=== PATIENT | male | born 1970 | race Caucasian/White ===

== ENCOUNTER 2018-12-11 23:01 | Inpatient (IN) | payer OTHER, MEDICARE ==
[~2018-12-11] VITALS: Ht 198.1 cm; Wt 107.5 kg
[2018-12-12] VITALS (7 sets, daily range): BP systolic 124–148; BP diastolic 52–83
[2018-12-12] MEDS ORDERED: SODIUM CHLORIDE 0.9% 1,000 ML IV ONE (01:50)
[2018-12-12] MEDS ORDERED: MORPHINE SULFATE 4 MG/ML CPJ (NOT FOR IM USE) IV STA (01:50)
[2018-12-12] MEDS ORDERED: ONDANSETRON HCL 4MG/2ML INJ IV STA (01:50)
[2018-12-12] MEDS ORDERED: CLINDAMYCIN 600 MG in DEXTROSE 5% WATER 50 ML IV ONE (02:00)
[2018-12-12] MEDS ORDERED: PIPERACILLIN/TAZ 3.375G PREMIX 50 ML IV ONE (02:00)
[2018-12-12] MEDS ORDERED: VANCOMYCIN 1 G PREMIX 200 ML IV ONE (02:00)
[2018-12-12 02:04] LABS: CHLORIDE 92 mEq/L (98-107)
[2018-12-12 02:12] LABS: BETA HYDROXYBUTYRATE 0.4 mMol/L (0.0-0.3)
[2018-12-12 02:30] LABS: BASOPHILS % 0.2 % (0.0-2.0); EOSINOPHILS % 0.1 % (0.0-5.0); HEMATOCRIT. 40.2 % (42.0-52.0); HEMOGLOBIN. 13.9 g/dL (14.0-18.0); MEAN CORPUSCULAR HEMOGLOBIN 33.5 pg (28.0-32.0); MEAN CORPUSCULAR VOLUME 96.8 fL (80.0-94.0); MEAN PLATELET VOLUME 7.5 fl (7.4-10.4); MONOCYTES % 8.6 % (2.0-8.0); NEUTROPHILS % 80.1 % (40.0-76.0); PLATELET 289 x1000/uL (130-400); RED BLOOD CELL COUNT 4.15 mill/uL (4.7-6.1); RED CELL DISTRIBUTION WIDTH 13.4 % (11.6-14.6)
[2018-12-12] MEDS ORDERED: CLINDAMYCIN 600MG PREMIX 50 ML IV SCH (02:30)
[2018-12-12 02:39] LABS: PROTHROMBIN TIME 10.7 sec (9.6-11.0)
[2018-12-12] MEDS ORDERED: DEXTROSE 50% WATER 50ML SYRINGE IV PRN ×2 (07:00→10:15)
[2018-12-12] MEDS ORDERED: INSULIN LISPRO (MEDIUM DOSE) 100 UNITS/ML SUBCUT SCH (08:20)
[2018-12-12] MEDS ORDERED: BLOOD SUGAR DIAGNOSTIC STRIP TEST SCH (09:00)
[2018-12-12] MEDS ORDERED: INSULIN GLARGINE UD 100 UNITS/ML SYR SUBCUT ONE (10:45)
[2018-12-12] MEDS ORDERED: GABA600T PO (11:03)
[2018-12-12] MEDS ORDERED: PIOG1TAB7 PO (11:03)
[2018-12-12] MEDS ORDERED: CEPH-569 PO (11:03)
[2018-12-12] MEDS ORDERED: INSU3INS2 SQ (11:03)
[2018-12-12] MEDS ORDERED: HYDR-4009 PO (11:03)
[2018-12-12] MEDS ORDERED: INSLIS SUBCUT (11:03)
[2018-12-12] MEDS ORDERED: DIXL10 PO (11:03)
[2018-12-12] MEDS ORDERED: SULF-288 PO (11:03)
[2018-12-12] MEDS ORDERED: ATOR20TA PO (11:03)
[2018-12-12] MEDS: SODIUM CHLORIDE 0.9% 1,000 ML IV SCH (12:12)
[2018-12-12] MEDS ORDERED: IOHEXOL-300 100 ML BOTTLE ONE (12:33)
[2018-12-12] MEDS: BLOOD SUGAR DIAGNOSTIC STRIP TEST SCH ×3 (12:54→21:00)
[2018-12-12] MEDS: PIPERACILLIN/TAZ 3.375G PREMIX 50 ML IV SCH ×2 (12:54→18:28)
[2018-12-12] MEDS ORDERED: VANCOMYCIN 2,000 MG in DEXT 5% WATER 500 ML IV SCH (13:00)
[2018-12-12 13:20] LABS: CLARITY URINE CLEAR (CLEAR); COLOR URINE YELLOW (YELLOW); KETONES URINE NEGATIVE (NEGATIVE); LEUKOCYTE ESTERASE URINE NEGATIVE (NEGATIVE); NITRITE URINE NEGATIVE (NEGATIVE); OCCULT BLOOD URINE NEGATIVE (NEGATIVE); PROTEIN URINE NEGATIVE (NEGATIVE); SPECIFIC GRAVITY URINE 1.016 (1.005-1.030); UROBILINOGEN URINE 0.2 E.U./dL (0.2-1.0)
[2018-12-12] MEDS: INSULIN LISPRO 100 UNITS/ML SUBCUT SCH ×3 (13:22→21:38)
[2018-12-12] MEDS ORDERED: TETANUS, DIPHTHERIA, PERTUSSIS VAC/PF 0.5ML (>7YR OLD) IM ONE (14:15)
[2018-12-12] MEDS ORDERED: INSULIN GLARGINE UD 100 UNITS/ML SYR SUBCUT NR (14:30)
[2018-12-12] MEDS ORDERED: ENOXAPARIN 40MG/0.4ML SYR SUBCUT SCH (15:00)
[2018-12-12 15:05] LABS: *AMPHETAMINES SCREEN URINE NEGATIVE (NEGATIVE); *BARBITURATES SCREEN URINE NEGATIVE (NEGATIVE); *BENZODIAZEPINES SCREEN URINE NEGATIVE (NEGATIVE); METHADONE URINE SCREEN NEGATIVE (NEGATIVE); OPIATES URINE SCREEN PRESUMTIVE POSITIVE (NEGATIVE)
[2018-12-12 15:06] LABS: CANNABINOID URINE SCREEN PRESUMTIVE POSITIVE (NEGATIVE); PHENCYCLIDINE URINE SCREEN NEGATIVE (NEGATIVE)
[2018-12-12 15:08] LABS: *COCAINE SCREEN URINE PRESUMTIVE POSITIVE (NEGATIVE)
[2018-12-12] MEDS: NICOTINE 21MG PATCH TD SCH (16:52)
[2018-12-12] MEDS: CLINDAMYCIN 600MG PREMIX 50 ML IV SCH (16:53)
[2018-12-12] MEDS: VANCOMYCIN 1500MG in DEXTROSE 5% WATER 250ML IV SCH (21:26)
[2018-12-13] VITALS (12 sets, daily range): BP systolic 123–170; BP diastolic 57–90
[2018-12-13] MEDS: CLINDAMYCIN 600MG PREMIX 50 ML IV SCH ×4 (00:01→23:23)
[2018-12-13] MEDS: PIPERACILLIN/TAZ 3.375G PREMIX 50 ML IV SCH ×5 (00:02→23:23)
[2018-12-13] MEDS: SODIUM CHLORIDE 0.9% 1,000 ML IV SCH ×2 (02:54→13:09)
[2018-12-13] MEDS: VANCOMYCIN 1500MG in DEXTROSE 5% WATER 250ML IV SCH ×3 (04:59→20:52)
[2018-12-13] MEDS ORDERED: FENTANYL CITRATE/PF 50MCG/ML 2ML VIAL ONE ×2 (06:38→07:12)
[2018-12-13] MEDS ORDERED: NEOSTIGMINE METHYLSULFATE 1MG/ML 10 ML VIAL ONE (06:39)
[2018-12-13] MEDS ORDERED: MIDAZOLAM HCL 2 MG/2 ML VIAL ONE ×4 (06:39→08:03)
[2018-12-13] MEDS ORDERED: LIDOCAINE HCL/PF 1% 10 MG/ML 5ML VIAL ONE (06:40)
[2018-12-13] MEDS ORDERED: PROPOFOL 200MG/20ML VIAL IV ONE (06:40)
[2018-12-13] MEDS ORDERED: GENTAMICIN SULF 40MG/ML 2ML VIAL ONE (06:46)
[2018-12-13] MEDS ORDERED: BACITRACIN 15GM TUBE TOP ONE (06:47)
[2018-12-13] MEDS ORDERED: LIDOCAINE HCL 1% 20ML VIAL (Pyxis) INJ ONE (06:47)
[2018-12-13] MEDS ORDERED: BUPIVACAINE HCL/PF 0.5% (5MG/ML) 10ML ONE (06:47)
[2018-12-13] MEDS ORDERED: BACITRACIN 50,000 UNITS/VIAL ONE (06:47)
[2018-12-13] MEDS ORDERED: LIDOCAINE HCL/EPINEPHRINE 1%-EPI 1:100,000 20 ML VIAL ONE (06:48)
[2018-12-13 06:58] LABS: HEMATOCRIT 38.6 % (42.0-52.0); HEMOGLOBIN 13.2 g/dL (14.0-18.0); MEAN CORPUSCULAR HEMOGLOBIN 33.3 pg (28.0-32.0); MEAN CORPUSCULAR VOLUME 97.1 fL (80.0-94.0); PLATELET 293 x1000/uL (130-400); RED BLOOD CELL COUNT 3.97 mill/uL (4.7-6.1); RED CELL DISTRIBUTION WIDTH 13.4 % (11.6-14.6)
[2018-12-13 07:06] LABS: CHLORIDE 100 mEq/L (98-107)
[2018-12-13] MEDS ORDERED: ROPIVACAINE HCL 10MG/ML 20 ML VIAL EPI ONE (07:08)
[2018-12-13 07:14] LABS: LDL CHOLESTEROL 88 mg/dL (5-100)
[2018-12-13 07:16] LABS: HDL CHOLESTEROL 31 mg/dL (40-59); T4 FREE 1.44 ng/dL (0.76-1.46)
[2018-12-13] MEDS ORDERED: DIPHENHYDRAMINE 50MG/ML VIAL ONE (07:25)
[2018-12-13] MEDS: BLOOD SUGAR DIAGNOSTIC STRIP TEST SCH ×4 (07:30→20:59)
[2018-12-13] MEDS ORDERED: HYDROMORPHONE HCL/PF 2MG/ML CPJ IV PRN (09:00)
[2018-12-13] MEDS ORDERED: INSULIN GLARGINE UD 100 UNITS/ML SYR SUBCUT SCH (10:00)
[2018-12-13] MEDS: NICOTINE 21MG PATCH TD SCH (10:47)
[2018-12-13] MEDS: INSULIN LISPRO 100 UNITS/ML SUBCUT SCH ×4 (10:51→21:10)
[2018-12-13] MEDS: MORPHINE SULFATE 2 MG/ML CPJ (NOT FOR IM USE) IV PRN ×2 (16:40→21:09)
[2018-12-13] MEDS ORDERED: HYDRALAZINE 20MG/ML VIAL IV PRN (17:30)
[2018-12-13] MEDS: AMLODIPINE 5MG TABLET PO SCH (18:24)
[2018-12-13] MEDS ORDERED: INSULIN GLARGINE UD 100 UNITS/ML SYR SUBCUT NR (18:30)
[2018-12-14] VITALS (12 sets, daily range): BP systolic 122–158; BP diastolic 56–91
[2018-12-14] MEDS: MORPHINE SULFATE 2 MG/ML CPJ (NOT FOR IM USE) IV PRN ×5 (01:49→22:44)
[2018-12-14] MEDS: VANCOMYCIN 1500MG in DEXTROSE 5% WATER 250ML IV SCH ×3 (04:08→21:02)
[2018-12-14] MEDS: SODIUM CHLORIDE 0.9% 1,000 ML IV SCH ×2 (04:10→15:39)
[2018-12-14] MEDS: PIPERACILLIN/TAZ 3.375G PREMIX 50 ML IV SCH ×3 (06:14→18:58)
[2018-12-14 06:42] LABS: BASOPHILS % 0.3 % (0.0-2.0); EOSINOPHILS % 0.1 % (0.0-5.0); HEMATOCRIT. 38.7 % (42.0-52.0); LYMPHOCYTES % 13.3 % (20.0-50.0); MEAN CORPUSCULAR HEMOGLOBIN 32.6 pg (28.0-32.0); MEAN CORPUSCULAR VOLUME 96.9 fL (80.0-94.0); MEAN PLATELET VOLUME 7.4 fl (7.4-10.4); MONOCYTES % 8.8 % (2.0-8.0); NEUTROPHILS % 77.5 % (40.0-76.0); PLATELET 278 x1000/uL (130-400); RED BLOOD CELL COUNT 3.99 mill/uL (4.7-6.1); RED CELL DISTRIBUTION WIDTH 13.8 % (11.6-14.6)
[2018-12-14 07:00] LABS: CHLORIDE 101 mEq/L (98-107)
[2018-12-14] MEDS: BLOOD SUGAR DIAGNOSTIC STRIP TEST SCH ×4 (07:30→20:55)
[2018-12-14] MEDS: CLINDAMYCIN 600MG PREMIX 50 ML IV SCH ×3 (08:46→23:42)
[2018-12-14] MEDS: INSULIN LISPRO 100 UNITS/ML SUBCUT SCH ×4 (08:46→21:01)
[2018-12-14] MEDS: NICOTINE 21MG PATCH TD SCH (08:46)
[2018-12-14] MEDS: AMLODIPINE 5MG TABLET PO SCH (08:48)
[2018-12-14] MEDS ORDERED: LIDOCAINE HCL 1% 20ML VIAL (Pyxis) INJ ONE (10:14)
[2018-12-14] MEDS ORDERED: IOHEXOL-350 100 ML BOTTLE ONE (11:02)
[2018-12-14] MEDS: INSULIN GLARGINE UD 100 UNITS/ML SYR SUBCUT SCH (11:51)
[2018-12-14] MEDS ORDERED: ENOXAPARIN 40MG/0.4ML SYR SUBCUT SCH (19:15)
[2018-12-14] MEDS: ENOXAPARIN 40MG/0.4ML SYR SUBCUT SCH (20:55)
[2018-12-15] VITALS (11 sets, daily range): BP systolic 132–164; BP diastolic 41–89
[2018-12-15] MEDS: PIPERACILLIN/TAZ 3.375G PREMIX 50 ML IV SCH ×3 (00:52→11:22)
[2018-12-15] MEDS: SODIUM CHLORIDE 0.9% 1,000 ML IV SCH ×2 (05:20→18:22)
[2018-12-15] MEDS: VANCOMYCIN 1500MG in DEXTROSE 5% WATER 250ML IV SCH ×2 (05:58→13:29)
[2018-12-15 06:38] LABS: CHLORIDE 102 mEq/L (98-107)
[2018-12-15 06:54] LABS: HEMATOCRIT. 39.5 % (42.0-52.0); HEMOGLOBIN. 13.4 g/dL (14.0-18.0); MEAN CORPUSCULAR VOLUME 97.1 fL (80.0-94.0); MEAN PLATELET VOLUME 7.3 fl (7.4-10.4); PLATELET 306 x1000/uL (130-400); RED BLOOD CELL COUNT 4.07 mill/uL (4.7-6.1); RED CELL DISTRIBUTION WIDTH 13.6 % (11.6-14.6)
[2018-12-15] MEDS: NICOTINE 21MG PATCH TD SCH (08:22)
[2018-12-15] MEDS: AMLODIPINE 5MG TABLET PO SCH (08:23)
[2018-12-15] MEDS: CLINDAMYCIN 600MG PREMIX 50 ML IV SCH ×2 (08:24→16:09)
[2018-12-15] MEDS: INSULIN LISPRO 100 UNITS/ML SUBCUT SCH ×4 (08:28→21:07)
[2018-12-15] MEDS: BLOOD SUGAR DIAGNOSTIC STRIP TEST SCH ×4 (08:29→21:20)
[2018-12-15] MEDS: INSULIN GLARGINE UD 100 UNITS/ML SYR SUBCUT SCH (10:19)
[2018-12-15 12:15] LABS: PLATELET ESTIMATE NORMAL
[2018-12-15] MEDS: MORPHINE SULFATE 2 MG/ML CPJ (NOT FOR IM USE) IV PRN ×2 (17:30→22:19)
[2018-12-15] MEDS ORDERED: AMPICILLIN SOD/SULBACTAM NA 3 G in SODIUM CHLORIDE 0.9% 100 ML IV SCH (18:00)
[2018-12-15] MEDS: AMPICILLIN/SULBACTAM 3G in SODIUM CHLORIDE 0.9% 100ML IV SCH (20:31)
[2018-12-15] MEDS: ENOXAPARIN 40MG/0.4ML SYR SUBCUT SCH (20:33)
[2018-12-16] VITALS: BP 136/73
[2018-12-16] MEDS: AMPICILLIN/SULBACTAM 3G in SODIUM CHLORIDE 0.9% 100ML IV SCH ×4 (00:22→19:08)
[2018-12-16 02:00] VITALS: BP 126/68
[2018-12-16 06:57] LABS: HEMATOCRIT 39.2 % (42.0-52.0); HEMOGLOBIN 13.4 g/dL (14.0-18.0); MEAN CORPUSCULAR HEMOGLOBIN 33.3 pg (28.0-32.0); MEAN CORPUSCULAR VOLUME 97.2 fL (80.0-94.0); PLATELET 326 x1000/uL (130-400); RED BLOOD CELL COUNT 4.03 mill/uL (4.7-6.1); RED CELL DISTRIBUTION WIDTH 13.8 % (11.6-14.6)
[2018-12-16 07:25] LABS: CHLORIDE 103 mEq/L (98-107)
[2018-12-16 08:00] VITALS: BP 130/70
[2018-12-16] MEDS: BLOOD SUGAR DIAGNOSTIC STRIP TEST SCH ×4 (08:00→21:19)
[2018-12-16] MEDS: SODIUM CHLORIDE 0.9% 1,000 ML IV SCH (09:30)
[2018-12-16] MEDS: AMLODIPINE 5MG TABLET PO SCH (09:31)
[2018-12-16] MEDS: NICOTINE 21MG PATCH TD SCH (09:31)
[2018-12-16] MEDS: INSULIN LISPRO 100 UNITS/ML SUBCUT SCH ×4 (09:37→21:19)
[2018-12-16] MEDS: INSULIN GLARGINE UD 100 UNITS/ML SYR SUBCUT SCH (09:38)
[2018-12-16 12:00] VITALS: BP 136/65
[2018-12-16] MEDS: ENOXAPARIN 40MG/0.4ML SYR SUBCUT SCH (21:16)
[2018-12-16] MEDS: MORPHINE SULFATE 2 MG/ML CPJ (NOT FOR IM USE) IV PRN (21:17)
[2018-12-17] MEDS: AMPICILLIN/SULBACTAM 3G in SODIUM CHLORIDE 0.9% 100ML IV SCH ×4 (01:41→18:19)
[2018-12-17] MEDS: SODIUM CHLORIDE 0.9% 1,000 ML IV SCH ×2 (03:34→18:26)
[2018-12-17 06:35] LABS: HEMATOCRIT 42.7 % (42.0-52.0); HEMOGLOBIN 14.7 g/dL (14.0-18.0); MEAN CORPUSCULAR HEMOGLOBIN 33.3 pg (28.0-32.0); MEAN CORPUSCULAR VOLUME 96.5 fL (80.0-94.0); PLATELET 392 x1000/uL (130-400); RED BLOOD CELL COUNT 4.42 mill/uL (4.7-6.1); RED CELL DISTRIBUTION WIDTH 13.8 % (11.6-14.6)
[2018-12-17 06:51] LABS: CHLORIDE 103 mEq/L (98-107)
[2018-12-17] MEDS: BLOOD SUGAR DIAGNOSTIC STRIP TEST SCH ×4 (07:30→21:27)
[2018-12-17] MEDS: NICOTINE 21MG PATCH TD SCH (09:04)
[2018-12-17] MEDS: INSULIN GLARGINE UD 100 UNITS/ML SYR SUBCUT SCH (09:05)
[2018-12-17] MEDS: INSULIN LISPRO 100 UNITS/ML SUBCUT SCH ×4 (09:06→21:28)
[2018-12-17] MEDS: AMLODIPINE 5MG TABLET PO SCH (10:22)
[2018-12-17] MEDS ORDERED: POTASSIUM CHLORIDE 20MEQ TABLET SR PO SCH (11:00)
[2018-12-17] MEDS ORDERED: MORPHINE SULFATE 2 MG/ML CPJ (NOT FOR IM USE) IV NR (17:25)
[2018-12-17] MEDS ORDERED: HYDROCODONE/ACETAMINOPHEN 5/325MG TABLET PO PRN (20:45)
[2018-12-17] MEDS: ENOXAPARIN 40MG/0.4ML SYR SUBCUT SCH (21:30)
[2018-12-18] MEDS: AMPICILLIN/SULBACTAM 3G in SODIUM CHLORIDE 0.9% 100ML IV SCH ×4 (00:18→18:11)
[2018-12-18] MEDS: SODIUM CHLORIDE 0.9% 1,000 ML IV SCH ×2 (00:19→13:19)
[2018-12-18] MEDS: BLOOD SUGAR DIAGNOSTIC STRIP TEST SCH ×3 (07:30→18:12)
[2018-12-18 08:00] VITALS: BP 149/74
[2018-12-18] MEDS: NICOTINE 21MG PATCH TD SCH (08:56)
[2018-12-18] MEDS: AMLODIPINE 5MG TABLET PO SCH (08:56)
[2018-12-18] MEDS: INSULIN LISPRO 100 UNITS/ML SUBCUT SCH ×3 (08:59→18:11)
[2018-12-18] MEDS: INSULIN GLARGINE UD 100 UNITS/ML SYR SUBCUT SCH (10:33)
[2018-12-18 12:00] VITALS: BP 164/85
[2018-12-18 16:00] VITALS: BP 147/88
[2018-12-18] MEDS ORDERED: SODIUM HYPOCHLORITE (0.25%) 480ML SOLUTION (HALF STRENGTH) TOP SCH (18:30)
== END 2018-12-18 20:40 | disposition home health service (06) | DRG 853 ==
LOC: ER 23:01 → 5EST 12-12 04:37 → EDBEDREQ 12-12 04:42 → EDBEDREQTM 12-12 04:42 → ENRESERV 12-12 07:50
PROVIDERS: ADMIT Internal Medicine; ATTEND Internal Medicine
PROC: 0JBR0ZZ Excision of Left Foot Subcutaneous Tissue and Fascia, Open Approach (ICD-10-PCS; 2018-12-13)
PROC: 0JBR0ZZ Excision of Left Foot Subcutaneous Tissue and Fascia, Open Approach (ICD-10-PCS; 2018-12-13)
PROC: 02HV33Z Insertion of Infusion Device into Superior Vena Cava, Percutaneous Approach (ICD-10-PCS; principal; 2018-12-14)
PROC: B518ZZA Fluoroscopy of Superior Vena Cava, Guidance (ICD-10-PCS; 2018-12-14)
PROC: B548ZZA Ultrasonography of Superior Vena Cava, Guidance (ICD-10-PCS; 2018-12-14)
DX: A41.9 Sepsis, unspecified organism (principal); I50.33 Acute on chronic diastolic (congestive) heart failure; L03.116 Cellulitis of left lower limb; E11.52 Type 2 diabetes mellitus with diabetic peripheral angiopathy with gangrene; E87.1 Hypo-osmolality and hyponatremia; L02.612 Cutaneous abscess of left foot; I70.262 Atherosclerosis of native arteries of extremities with gangrene, left leg; E86.0 Dehydration; I70.201 Unspecified atherosclerosis of native arteries of extremities, right leg; D64.9 Anemia, unspecified; E83.52 Hypercalcemia; I11.0 Hypertensive heart disease with heart failure; F11.10 Opioid abuse, uncomplicated; F14.10 Cocaine abuse, uncomplicated; F12.10 Cannabis abuse, uncomplicated; E11.621 Type 2 diabetes mellitus with foot ulcer; E11.42 Type 2 diabetes mellitus with diabetic polyneuropathy; S92.342A Displaced fracture of fourth metatarsal bone, left foot, initial encounter for closed fracture; B95.2 Enterococcus as the cause of diseases classified elsewhere; M48.00 Spinal stenosis, site unspecified; E11.65 Type 2 diabetes mellitus with hyperglycemia; F17.210 Nicotine dependence, cigarettes, uncomplicated; K80.20 Calculus of gallbladder without cholecystitis without obstruction; L97.529 Non-pressure chronic ulcer of other part of left foot with unspecified severity; S91.332A Puncture wound without foreign body, left foot, initial encounter; X58.XXXD Exposure to other specified factors, subsequent encounter; W45.0XXA Nail entering through skin, initial encounter; Y93.89 Activity, other specified; Z91.19 Patient's noncompliance with other medical treatment and regimen; Y92.89 Other specified places as the place of occurrence of the external cause; Y99.8 Other external cause status; Z79.4 Long term (current) use of insulin; Z79.899 Other long term (current) drug therapy; Z71.6 Tobacco abuse counseling; Z71.41 Alcohol abuse counseling and surveillance of alcoholic; Z71.51 Drug abuse counseling and surveillance of drug abuser
CPT/HCPCS: 36415; 36573; 71045; 73630; 73701; 75635; 80048; 80061; 80202; 80305; 82010; 82962; 83036; 83605; 84145; 84439; 84443; 85027; 85651; 86140; 87070; 87075; 87186; 90715; 93306; 93923; 93970; 96361; 96367; 96372; 96374; 96375; 99285; C1725; J0295; J0360; J1200; J1580; J1650; J1815; J2250; J2270; J2405; J2543; J2704; J2710; J2795; J3010; J3370; J3490; J7030; J7050; J7060; Q9967